=== PATIENT | female | born 1960 | race Caucasian/White ===

== ENCOUNTER 2019-10-13 20:06 | Inpatient (IN) | payer MEDICARE ==
[~2019-10-13] VITALS: Ht 162.6 cm; Wt 136.4 kg
[2019-10-13 20:25] LABS: BASOPHILS # (AUTO) 0.1 X10'3 (0-0.2); EOSINOPHILS % (AUTO) 0.7 % (0-6); HEMATOCRIT 37.7 % (35.0-45.0); HEMOGLOBIN 12.7 g/dl (12.0-16.0); LYMPHOCYTES # (AUTO) 1.9 X10'3 (1.1-4.8); LYMPHOCYTES % (AUTO) 27.5 % (21-51); MEAN CORPUSCULAR HEMOGLOBIN 28.2 PG (27.0-31.0); MEAN CORPUSCULAR HGB CONC 33.7 g/dL (33.0-36.5); MEAN CORPUSCULAR VOLUME 83.7 FL (78-98); MONOCYTES # (AUTO) 0.5 X10'3 (0-0.9); MONOCYTES % (AUTO) 7.4 % (2-12); NEUTROPHILS # (AUTO) 4.4 X10'3 (1.8-7.7); NEUTROPHILS % (AUTO) 63.4 % (42-75); PLATELET COUNT 214 X10'3 (140-440); RED CELL DISTRIBUTION WIDTH 14.5 % (11.5-14.5)
[2019-10-13 20:40] LABS: ALANINE AMINOTRANSFERASE 34 U/L (12-78); ALKALINE PHOSPHATASE 80 IU/L (46-116); ANION GAP 7 (8-16); ASPARTATE AMINO TRANSFERASE 29 U/L (10-37); BILIRUBIN,TOTAL 0.3 MG/DL (0.1-1.0); BLOOD UREA NITROGEN 10 MG/DL (7-18); BUN/CREATININE RATIO 9.5 (6.6-38.0); CALCIUM 9.1 MG/DL (8.5-10.1); CHLORIDE 97 MMOL/L (99-107); CREATININE 1.05 MG/DL (0.40-0.90); GLUCOSE 141 MG/DL (70-104); POTASSIUM 3.9 MMOL/L (3.5-5.1); SODIUM 134 MMOL/L (135-145); TOTAL CARBON DIOXIDE 30.2 MMOL/L (24-32); TOTAL PROTEIN 8.2 G/DL (6.4-8.2); eGFR 54 ML/MIN
[2019-10-13] MEDS ORDERED: methylPREDNISolone sod succ 125mg/2ml vial IV ONE (20:40)
[2019-10-13] MEDS ORDERED: LORazepam 2 mg/ml vial IV ONE (20:40)
[2019-10-13 21:06] LABS: MAGNESIUM 1.9 MG/DL (1.5-2.4)
[2019-10-13] MEDS ORDERED: ATOR40TA PO (21:10)
[2019-10-13] MEDS ORDERED: BUDE10.2 INH (21:10)
[2019-10-13] MEDS ORDERED: CARI-75 PO (21:10)
[2019-10-13] MEDS ORDERED: ALBU18HF2 INH (21:10)
[2019-10-13] MEDS ORDERED: OMEP40CA13 PO (21:10)
[2019-10-13] MEDS ORDERED: FLUO40CA10 PO (21:10)
[2019-10-13] MEDS ORDERED: FLUT1AER INH (21:10)
[2019-10-13] MEDS ORDERED: CLON-527 PO (21:10)
[2019-10-13] MEDS ORDERED: HYDR-4353 PO (21:10)
[2019-10-13] MEDS ORDERED: HYDROmorphone 2mg tablet PO PRN (21:55)
[2019-10-13 22:20] LABS: PARTIAL THROMBOPLASTIN TIME 25 SECONDS (22-32)
[2019-10-13] MEDS ORDERED: magnesium 4gm in 100ml NS 100 ML IV PRN (22:35)
[2019-10-13] MEDS ORDERED: magnesium Cl slow-release 64mg tablet PO PRN (22:35)
[2019-10-13] MEDS ORDERED: acetaminophen 325mg tablet PO PRN ×2 (22:35)
[2019-10-13] MEDS ORDERED: magnesium hydroxide 30ml (MOM) UD suspension PO PRN (22:35)
[2019-10-13] MEDS ORDERED: magnesium 2GM in 50ml NS 50 ML IV PRN (22:35)
[2019-10-13] MEDS ORDERED: morphine 2 MG/ML inj. syringe IV PRN ×2 (22:35)
[2019-10-13] MEDS ORDERED: ondansetron/PF 4mg/2ml inj IV PRN (22:35)
[2019-10-13] MEDS ORDERED: potassium Cl 20 mEq SR tablet PO PRN ×2 (22:35)
[2019-10-13] MEDS ORDERED: mag hydrox/Alum hydrox/simeth 30ml oral suspension PO PRN (22:35)
[2019-10-13] MEDS ORDERED: HYDROcodone/acetaminophen 5mg/325mg tablet PO PRN (22:35)
[2019-10-13] MEDS ORDERED: ipratropium/albuterol 3ml nebule NEB PRN (22:35)
[2019-10-13] MEDS ORDERED: potassium CL 10mEq/100ml bag 100 ML IV PRN ×2 (22:35)
--- NOTE | 2019-10-13 22:55 | NUR ---
PT VITALS UPDATED ,FAMILY AT BEDSIDE .
[2019-10-13] MEDS ORDERED: azithromycin 250mg tablet PO ONE (23:40)
[2019-10-13] MEDS ORDERED: clonazePAM 1mg tablet PO ONE (23:45)
--- NOTE | 2019-10-14 00:43 | NUR ---
Patient in room ED 13. I have received report from Adalgisa Mckeon Rn and had the opportunity to ask questions and will assume patient care upon arrival to the floor. Addendum: 10/14/19 at 0044 by Beverly Bolanos RN Amended: Links added.
[2019-10-14 00:50] VITALS: BP 131/91
--- NOTE | 2019-10-14 00:50 | NUR ---
received pt from the Er noted very anxious impulsive taking mask off at times and desating to the 80's and tachycardia. and daughter brought in after pt settled into the bed. pt with exertional expiratory wheezes but on auscultation noted increased aeration. several times approx every 5minutes needed to remind pt to put the o2 mask back on she would desat to 86-88 without it. [id number] done regarding the importance to pt and family.
[2019-10-14 01:22] LABS: ALBUMIN 3.8 G/DL (3.4-5.0); ANION GAP 7 (8-16); BLOOD UREA NITROGEN 10 MG/DL (7-18); CALCIUM 9.3 MG/DL (8.5-10.1); CHLORIDE 96 MMOL/L (99-107); GLUCOSE 207 MG/DL (70-104); MAGNESIUM 1.9 MG/DL (1.5-2.4); POTASSIUM 4.2 MMOL/L (3.5-5.1); SODIUM 131 MMOL/L (135-145); TOTAL CARBON DIOXIDE 28.4 MMOL/L (24-32); eGFR 57 ML/MIN
--- NOTE | 2019-10-14 02:00 | NUR ---
and daughter left and pt took po meds including po norco for pain. pt instructed not to get up to call Rn for assistance and we would attempt to slowly get her up o the bedside commode.
[2019-10-14] MEDS: HYDROcodone/acetaminophen 10/325mg tab PO PRN ×4 (02:14→22:54)
--- NOTE | 2019-10-14 03:10 | NUR ---
attempt x2 for troponin level draw. obtained scant amount of blood and vein would give out not enough to run a level.
--- NOTE | 2019-10-14 04:40 | NUR ---
pt resting eyes closed appears comfortable without s&s of distress at this time.
--- NOTE | 2019-10-14 05:44 | NUR ---
awoke up to bedside commode with assistance.
--- NOTE | 2019-10-14 05:57 | NUR ---
BACK TO BED MEDICATED WITH MORPHINE FOR PAIN AND TEACHING ON PURSED LIPPED BREATHING DONE DUE TO EXERTIONAL SOB. ALSO PT HAD TAKEN 02 OFF BRIEFLY AND DESATURATED AND TEACHING REGARDING THE IMPORTANCE UNTIL ANTIBIOTIC AND STEROID KICKS IN.
[2019-10-14 05:58] LABS: BASOPHILS % (AUTO) 0.2 % (0-1); EOSINOPHILS % (AUTO) 0 % (0-6); HEMOGLOBIN 11.5 g/dl (12.0-16.0); LYMPHOCYTES # (AUTO) 0.5 X10'3 (1.1-4.8); LYMPHOCYTES % (AUTO) 11.5 % (21-51); MEAN CORPUSCULAR HEMOGLOBIN 28.9 PG (27.0-31.0); MEAN CORPUSCULAR HGB CONC 33.8 g/dL (33.0-36.5); MEAN CORPUSCULAR VOLUME 85.4 FL (78-98); MEAN PLATELET VOLUME 8.3 FL (7.4-10.4); MONOCYTES # (AUTO) 0.1 X10'3 (0-0.9); MONOCYTES % (AUTO) 1.3 % (2-12); NEUTROPHILS # (AUTO) 4.1 X10'3 (1.8-7.7); PLATELET COUNT 179 X10'3 (140-440); RED BLOOD COUNT 3.98 X10'6 (4.20-5.60); RED CELL DISTRIBUTION WIDTH 14.5 % (11.5-14.5); WHITE BLOOD COUNT 4.7 X10'3 (4.5-11.0)
--- NOTE | 2019-10-14 06:14 | NUR ---
Problems reprioritized. Patient report given, questions answered & plan of care reviewed with ISSAC ARTHUR. Addendum: 10/14/19 at 0615 by Beverly Bolanos RN Amended: Links added.
--- NOTE | 2019-10-14 06:42 | NUR ---
Received report from Beverly ARTHUR
[2019-10-14 06:51] VITALS: BP 147/75
[2019-10-14] MEDS: FLUoxetine 20mg capsule PO SCH (07:56)
[2019-10-14] MEDS: predniSONE 20 mg tablet PO SCH (07:57)
[2019-10-14] MEDS: atorvastatin 20mg tablet PO SCH (07:57)
[2019-10-14] MEDS: clonazePAM 1mg tablet PO SCH ×3 (07:57→20:36)
[2019-10-14] MEDS: pantoprazole 40mg Tablet.DR PO SCH (07:57)
[2019-10-14] MEDS: azithromycin 250mg tablet PO SCH (07:57)
[2019-10-14] MEDS: enoxaparin 40mg/0.4ml syringe SQ SCH (08:00)
[2019-10-14] MEDS: K and/or MAG REPLACEMENT MC SCH ×2 (08:00→20:00)
[2019-10-14] MEDS: ipratropium/albuterol 3ml nebule NEB SCH ×4 (08:32→20:39)
[2019-10-14] MEDS: furosemide 20 MG/2 ML vial IV SCH ×2 (10:53→20:36)
[2019-10-14 18:00] VITALS: BP 145/79
[2019-10-14 22:00] VITALS: BP 146/88
[2019-10-15 06:00] VITALS: BP 133/64
[2019-10-15 06:37] LABS: BASOPHILS % (AUTO) 0.5 % (0-1); EOSINOPHILS % (AUTO) 0.2 % (0-6); HEMATOCRIT 32.1 % (35.0-45.0); HEMOGLOBIN 10.8 g/dl (12.0-16.0); LYMPHOCYTES # (AUTO) 1.2 X10'3 (1.1-4.8); LYMPHOCYTES % (AUTO) 19.6 % (21-51); MEAN CORPUSCULAR HEMOGLOBIN 28.9 PG (27.0-31.0); MEAN CORPUSCULAR HGB CONC 33.8 g/dL (33.0-36.5); MEAN CORPUSCULAR VOLUME 85.4 FL (78-98); MEAN PLATELET VOLUME 7.7 FL (7.4-10.4); MONOCYTES # (AUTO) 0.6 X10'3 (0-0.9); MONOCYTES % (AUTO) 10.5 % (2-12); NEUTROPHILS # (AUTO) 4.2 X10'3 (1.8-7.7); NEUTROPHILS % (AUTO) 69.2 % (42-75); PLATELET COUNT 181 X10'3 (140-440); RED BLOOD COUNT 3.76 X10'6 (4.20-5.60); RED CELL DISTRIBUTION WIDTH 14.8 % (11.5-14.5)
--- NOTE | 2019-10-15 06:42 | NUR ---
RECEIVED REPORT FROM PRINCE RN
[2019-10-15 06:52] LABS: ALBUMIN 3.6 G/DL (3.4-5.0); ANION GAP 4 (8-16); BLOOD UREA NITROGEN 15 MG/DL (7-18); BUN/CREATININE RATIO 14.4 (6.6-38.0); CALCIUM 8.8 MG/DL (8.5-10.1); CHLORIDE 98 MMOL/L (99-107); CREATININE 1.04 MG/DL (0.40-0.90); GLUCOSE 129 MG/DL (70-104); MAGNESIUM 2.6 MG/DL (1.5-2.4); POTASSIUM 4.1 MMOL/L (3.5-5.1); SODIUM 138 MMOL/L (135-145); TOTAL CARBON DIOXIDE 36.5 MMOL/L (24-32); eGFR 54 ML/MIN
[2019-10-15 07:00] LABS: D-DIMER 0.22 MG/L FEU (0-0.50)
[2019-10-15] MEDS: atorvastatin 20mg tablet PO SCH (07:59)
[2019-10-15] MEDS: clonazePAM 1mg tablet PO SCH ×3 (07:59→20:38)
[2019-10-15] MEDS: FLUoxetine 20mg capsule PO SCH (07:59)
[2019-10-15] MEDS: predniSONE 20 mg tablet PO SCH (07:59)
[2019-10-15] MEDS: enoxaparin 40mg/0.4ml syringe SQ SCH (08:00)
[2019-10-15] MEDS: pantoprazole 40mg Tablet.DR PO SCH (08:00)
[2019-10-15] MEDS: azithromycin 250mg tablet PO SCH (08:00)
[2019-10-15] MEDS: furosemide 20 MG/2 ML vial IV SCH ×2 (08:00→20:38)
[2019-10-15] MEDS: K and/or MAG REPLACEMENT MC SCH ×2 (08:00→20:00)
[2019-10-15] MEDS: HYDROcodone/acetaminophen 10/325mg tab PO PRN ×2 (08:04→21:07)
[2019-10-15] MEDS: ipratropium/albuterol 3ml nebule NEB SCH ×4 (08:17→20:13)
[2019-10-15] MEDS ORDERED: regadenoson 0.4mg/5ml syringe IV PRN (08:25)
[2019-10-15] MEDS ORDERED: nitroGLYCERIN 0.4mg SUBLingual tab SL PRN (08:25)
[2019-10-15] MEDS ORDERED: metoprolol tartrate 1mg/ml inj IV PRN (08:25)
[2019-10-15] MEDS ORDERED: aminophylline 250mg/10ml inj. IV PRN (08:25)
[2019-10-15 10:00] VITALS: BP 115/62
[2019-10-15] MEDS ORDERED: albuterol 2.5 MG/3 ML nebule ONE (13:18)
[2019-10-15] MEDS ORDERED: albuterol 2.5 MG/3 ML nebule NEB ONE (13:25)
[2019-10-15 18:00] VITALS: BP 138/89
[2019-10-15 22:00] VITALS: BP 136/82
[2019-10-16 06:00] VITALS: BP 114/65
[2019-10-16 06:36] LABS: BASOPHILS % (AUTO) 0.8 % (0-1); EOSINOPHILS % (AUTO) 0.4 % (0-6); HEMATOCRIT 30.3 % (35.0-45.0); HEMOGLOBIN 10.3 g/dl (12.0-16.0); LYMPHOCYTES # (AUTO) 1.5 X10'3 (1.1-4.8); LYMPHOCYTES % (AUTO) 30.2 % (21-51); MEAN CORPUSCULAR HEMOGLOBIN 28.8 PG (27.0-31.0); MEAN CORPUSCULAR HGB CONC 33.9 g/dL (33.0-36.5); MEAN CORPUSCULAR VOLUME 85.1 FL (78-98); MEAN PLATELET VOLUME 7.9 FL (7.4-10.4); MONOCYTES # (AUTO) 0.5 X10'3 (0-0.9); MONOCYTES % (AUTO) 10.5 % (2-12); NEUTROPHILS # (AUTO) 2.8 X10'3 (1.8-7.7); NEUTROPHILS % (AUTO) 58.1 % (42-75); PLATELET COUNT 169 X10'3 (140-440); RED BLOOD COUNT 3.56 X10'6 (4.20-5.60); RED CELL DISTRIBUTION WIDTH 14.9 % (11.5-14.5); WHITE BLOOD COUNT 4.8 X10'3 (4.5-11.0)
--- NOTE | 2019-10-16 06:37 | NUR ---
Patient in room ORTHO 4023. I have received report from Valencia RN and had the opportunity to ask questions and assume patient care.
[2019-10-16] MEDS: ipratropium/albuterol 3ml nebule NEB SCH ×5 (07:00→20:18)
[2019-10-16 07:01] LABS: ALBUMIN 3.3 G/DL (3.4-5.0); ANION GAP 6 (8-16); BLOOD UREA NITROGEN 15 MG/DL (7-18); BUN/CREATININE RATIO 16.7 (6.6-38.0); CALCIUM 8.7 MG/DL (8.5-10.1); CHLORIDE 97 MMOL/L (99-107); GLUCOSE 119 MG/DL (70-104); MAGNESIUM 2.6 MG/DL (1.5-2.4); POTASSIUM 3.7 MMOL/L (3.5-5.1); SODIUM 135 MMOL/L (135-145); TOTAL CARBON DIOXIDE 32.5 MMOL/L (24-32); eGFR 64 ML/MIN
[2019-10-16] MEDS: K and/or MAG REPLACEMENT MC SCH ×2 (07:34→19:50)
[2019-10-16] MEDS: pantoprazole 40mg Tablet.DR PO SCH (08:09)
[2019-10-16] MEDS: furosemide 20 MG/2 ML vial IV SCH ×2 (08:09→20:14)
[2019-10-16] MEDS: clonazePAM 1mg tablet PO SCH ×3 (08:09→20:14)
[2019-10-16] MEDS: atorvastatin 20mg tablet PO SCH (08:09)
[2019-10-16] MEDS: FLUoxetine 20mg capsule PO SCH (08:09)
[2019-10-16] MEDS: predniSONE 20 mg tablet PO SCH (08:09)
[2019-10-16] MEDS: azithromycin 250mg tablet PO SCH (08:10)
[2019-10-16] MEDS: enoxaparin 40mg/0.4ml syringe SQ SCH (08:10)
[2019-10-16] MEDS: methylPREDNISolone sod succ 125mg/2ml vial IV SCH ×2 (09:51→17:09)
--- NOTE | 2019-10-16 13:05 | NUR ---
PAGER ID: [phone] MESSAGE: Rm [id number], White. Pt would like to speak to you about being discharged. Pt is upset and has questions for her MD. Thank you Jacque [phone]
--- NOTE | 2019-10-16 14:27 | NUR ---
Paged case mangmt after speaking with family regarding the patient's PCP. Rm [id number], White. Pt's family is asking for case mangmt to help the pt establish a PCP that is closer to home. Please advise. Thank you.
[2019-10-16] MEDS: HYDROcodone/acetaminophen 10/325mg tab PO PRN ×2 (14:40→20:14)
--- NOTE | 2019-10-16 15:10 | NUR ---
Patient is anxious and tearful which seems to contribute to her SOB and wheezing. Patient c/o the room being dirty and asked for ice packs and pain medication. EVS was called and cleaned the room promptly, also pt was given medications per MD order to alleviate her pain along with ice pack and a cool wash cloth. The patient was agitated and yelling about not wanting to be here in the hospital, with son at bedside. MD was paged in regards to questions she is having about being discharge, awaiting response from MD. Case management is going to consult to see if they can assist in the patient's concerns regarding a PCP.
--- NOTE | 2019-10-16 16:15 | NUR ---
Patient is calm and seems to be less agitated at this time, will continue to monitor.
[2019-10-16 18:00] VITALS: BP 129/66
--- NOTE | 2019-10-16 18:15 | NUR ---
Received report from Jacque ARTHUR. Assumed care of patient.
[2019-10-16] MEDS: lactobacillus rhamnosus 10,000 MMU CELLS/CAPSULE PO SCH (20:14)
[2019-10-16 22:00] VITALS: BP 141/72
[2019-10-17] MEDS: methylPREDNISolone sod succ 125mg/2ml vial IV SCH ×2 (00:22→08:15)
[2019-10-17] MEDS: HYDROcodone/acetaminophen 10/325mg tab PO PRN ×3 (00:23→11:56)
[2019-10-17 06:00] VITALS: BP 109/60
[2019-10-17 06:08] LABS: BASOPHILS % (AUTO) 0.1 % (0-1); EOSINOPHILS % (AUTO) 0 % (0-6); HEMATOCRIT 31.3 % (35.0-45.0); HEMOGLOBIN 10.7 g/dl (12.0-16.0); LYMPHOCYTES # (AUTO) 0.5 X10'3 (1.1-4.8); LYMPHOCYTES % (AUTO) 11.9 % (21-51); MEAN CORPUSCULAR HEMOGLOBIN 28.9 PG (27.0-31.0); MEAN CORPUSCULAR HGB CONC 34.1 g/dL (33.0-36.5); MEAN CORPUSCULAR VOLUME 84.7 FL (78-98); MEAN PLATELET VOLUME 7.9 FL (7.4-10.4); MONOCYTES # (AUTO) 0.2 X10'3 (0-0.9); MONOCYTES % (AUTO) 4.5 % (2-12); NEUTROPHILS # (AUTO) 3.7 X10'3 (1.8-7.7); NEUTROPHILS % (AUTO) 83.5 % (42-75); PLATELET COUNT 175 X10'3 (140-440); RED BLOOD COUNT 3.69 X10'6 (4.20-5.60); RED CELL DISTRIBUTION WIDTH 14.5 % (11.5-14.5); WHITE BLOOD COUNT 4.4 X10'3 (4.5-11.0)
--- NOTE | 2019-10-17 06:13 | NUR ---
Report given to Lee ARTHUR.
[2019-10-17 06:22] LABS: ALBUMIN 3.5 G/DL (3.4-5.0); ANION GAP 6 (8-16); BLOOD UREA NITROGEN 16 MG/DL (7-18); BUN/CREATININE RATIO 16.3 (6.6-38.0); CALCIUM 8.8 MG/DL (8.5-10.1); CHLORIDE 97 MMOL/L (99-107); CREATININE 0.98 MG/DL (0.40-0.90); GLUCOSE 249 MG/DL (70-104); MAGNESIUM 2.6 MG/DL (1.5-2.4); POTASSIUM 4.3 MMOL/L (3.5-5.1); SODIUM 136 MMOL/L (135-145); TOTAL CARBON DIOXIDE 33.3 MMOL/L (24-32); eGFR 58 ML/MIN
--- NOTE | 2019-10-17 06:55 | NUR ---
Patient in room ORTHO 4023. I have received report from Mackenzie Bishop and had the opportunity to ask questions and assume patient care.
[2019-10-17] MEDS: K and/or MAG REPLACEMENT MC SCH (07:09)
[2019-10-17 08:00] VITALS: BP 128/78
[2019-10-17] MEDS: FLUoxetine 20mg capsule PO SCH (08:14)
[2019-10-17] MEDS: lactobacillus rhamnosus 10,000 MMU CELLS/CAPSULE PO SCH (08:14)
[2019-10-17] MEDS: atorvastatin 20mg tablet PO SCH (08:14)
[2019-10-17] MEDS: pantoprazole 40mg Tablet.DR PO SCH (08:14)
[2019-10-17] MEDS: clonazePAM 1mg tablet PO SCH ×2 (08:15→13:03)
[2019-10-17] MEDS: azithromycin 250mg tablet PO SCH (08:15)
[2019-10-17] MEDS: furosemide 20 MG/2 ML vial IV SCH (08:16)
[2019-10-17] MEDS: enoxaparin 40mg/0.4ml syringe SQ SCH (08:17)
[2019-10-17] MEDS: ipratropium/albuterol 3ml nebule NEB SCH ×2 (08:31→11:44)
[2019-10-17 10:00] VITALS: BP 132/64
--- NOTE | 2019-10-17 11:28 | NUR ---
[phone] patient is wanting to be discharged is that possible today?
--- NOTE | 2019-10-17 11:32 | NUR ---
Initial: Pt admit w/ SOB DX acute on chronic cor pulmonale w/ R sided heart failure EF 45-50% per MD note. PO 100% meals; did refuse dinner last night but overall meeting needs. Pt constipated prior to last night but reports BM last night per RN. Will continue to monitor. Rec: 1. continue heart healthy diet 2. monitor for additional protein needs IF PO declines 3. routine bowel care 4. wt per rx Addendum: 10/17/19 at [address] Amended: Links added.
[2019-10-17] MEDS ORDERED: FURO-150 PO (12:36)
[2019-10-17] MEDS ORDERED: PRED20TA PO (12:36)
[2019-10-17] MEDS ORDERED: BUPR150T8 PO (13:02)
--- NOTE | 2019-10-17 14:30 | NUR ---
Patient discharged to home with all belongings sent with patient, patient stable upon discharge. Patient and spouse educated on discharge information and follow up with primary care , new rx called into preferred pharmacy.
== END 2019-10-17 14:26 | disposition home or self-care (01) | DRG 190 ==
LOC: ER 20:07 → ED HOLD 22:37 → ORTHO 4S 10-14 00:45
PROVIDERS: ADMIT Hospitalist; ATTEND Family Medicine
PROC: 4A02XM4 Measurement of Cardiac Total Activity, External Approach (ICD-10-PCS; principal; 2019-10-15)
PROC: 3E033HZ Introduction of Radioactive Substance into Peripheral Vein, Percutaneous Approach (ICD-10-PCS; 2019-10-15)
DX: J44.1 Chronic obstructive pulmonary disease with (acute) exacerbation (principal); I50.33 Acute on chronic diastolic (congestive) heart failure; E87.1 Hypo-osmolality and hyponatremia; N17.9 Acute kidney failure, unspecified; Z68.43 Body mass index [BMI] 50.0-59.9, adult; E66.01 Morbid (severe) obesity due to excess calories; E83.42 Hypomagnesemia; M19.90 Unspecified osteoarthritis, unspecified site; M54.9 Dorsalgia, unspecified; F41.0 Panic disorder [episodic paroxysmal anxiety]; F17.200 Nicotine dependence, unspecified, uncomplicated; E78.5 Hyperlipidemia, unspecified; F32.9 Major depressive disorder, single episode, unspecified; J40 Bronchitis, not specified as acute or chronic; G89.4 Chronic pain syndrome; I20.9 Angina pectoris, unspecified; N18.9 Chronic kidney disease, unspecified; R09.02 Hypoxemia; Z85.43 Personal history of malignant neoplasm of ovary; Z90.710 Acquired absence of both cervix and uterus; Z79.899 Other long term (current) drug therapy
CPT/HCPCS: 36415; 71045; 78451; 80048; 80053; 83735; 83880; 84484; 85025; 85379; 85610; 85730; 87081; 93005; 93308; 94640; 94760; 96374; 96375; 99285; A9500; G0378; J0280; J1650; J1940; J2060; J2270; J2785; J2930; J7512

== ENCOUNTER 2025-03-03 13:38 | Emergency (ER) | payer MEDICARE, SELFPAY ==
[~2025-03-03] VITALS: Ht 162.6 cm; Wt 98.3 kg
[~2025-03-03 13:38] MED LIST: ALBU18HF2 INH; ATOR40TA PO; CARI-75 PO; CLON-527 PO; ERGO500056 PO; FLUO40CA10 PO; FLUT1AER INH; HYDR-4353 PO; ONDA-243 PO; PANT-47 PO; SUCR1TAB34 PO; [UNRECOGNIZED DRUG - CODE] CONITINF
--- NOTE | 2025-03-03 14:01 | ELECTROCARDIOGRAPH REPORT ---
[facility] Test Date: 2025-03-03 Test Time: 13:57:24 Pat Name: DAWNA DENSON Department: [facility] Patient ID: [facility]-[id number] Room: Gender: F Hide Splitter: : 1960 Requested By: RUY STYLES Order Number: [id number] Reading MD: Dr. William Sanz Measurements Intervals Percival Rate: 105 P: 42 UT: 170 QRS: 0 QRSD: 94 T: 55 QT: 366 QTc: 484 Interpretive Statements Sinus tachycardia Consider left ventricular hypertrophy Borderline prolonged QT interval Baseline wander in lead(s) II,III,aVL,aVF,V2,V3,V4,V5,V6 Electronically Signed On 03-03-2025 18:29:[address] William Sanz Please click the below link to view image of tracing.
--- NOTE | 2025-03-03 14:16 | RADIOLOGY REPORT ---
CHEST RADIOGRAPH Indication: CP Technique: Single frontal view of the chest was obtained Comparison: CHEST,SINGLE VIEW on DOS: 10/13/19 FINDINGS: Lines and Tubes: None Lungs: No focal consolidation. Pleura: No effusion. No pneumothorax. Cardiomediastinal contours: Unremarkable Bones: No acute osseous abnormality. IMPRESSION: No acute cardiopulmonary disease.
[2025-03-03 14:32] LABS: BASOPHILS % (AUTO) 0.6 % (0-1); EOSINOPHILS % (AUTO) 0.7 % (0-6); HEMATOCRIT 41.2 % (35.0-45.0); HEMOGLOBIN 13.7 g/dl (12.0-16.0); LYMPHOCYTES # (AUTO) 0.9 X10'3 (1.1-4.8); LYMPHOCYTES % (AUTO) 30.1 % (21-51); MEAN CORPUSCULAR HEMOGLOBIN 28.4 PG (27.0-31.0); MEAN CORPUSCULAR HGB CONC 33.3 g/dL (33.0-36.5); MEAN CORPUSCULAR VOLUME 85.3 FL (78-98); MEAN PLATELET VOLUME 8.2 FL (7.4-10.4); MONOCYTES # (AUTO) 0.3 X10'3 (0-0.9); MONOCYTES % (AUTO) 8.9 % (2-12); NEUTROPHILS # (AUTO) 1.8 X10'3 (1.8-7.7); NEUTROPHILS % (AUTO) 59.7 % (42-75); PLATELET COUNT 212 X10'3 (140-440); RED BLOOD COUNT 4.83 X10'6 (4.20-5.60); RED CELL DISTRIBUTION WIDTH 14.8 % (11.5-14.5); WHITE BLOOD COUNT 3.1 X10'3 (4.5-11.0)
[2025-03-03 14:44] LABS: ALANINE AMINOTRANSFERASE 15 U/L (12-78); ALBUMIN 4.4 G/DL (3.4-5.0); ALBUMIN/GLOBULIN RATIO 1.4 (1.1-1.5); ALKALINE PHOSPHATASE 59 IU/L (46-116); ANION GAP 11 (8-16); ASPARTATE AMINO TRANSFERASE 19 U/L (10-37); BILIRUBIN,TOTAL 0.2 MG/DL (0.1-1.0); BLOOD UREA NITROGEN 8 MG/DL (7-18); BUN/CREATININE RATIO 9.2 (10.0-20.0); CALCIUM 9.3 MG/DL (8.5-10.1); CHLORIDE 103 MMOL/L (99-107); CREATININE 0.87 MG/DL (0.40-0.90); GLUCOSE 141 MG/DL (70-104); POTASSIUM 3.7 MMOL/L (3.5-5.1); SODIUM 140 MMOL/L (135-145); TOTAL CARBON DIOXIDE 25.6 MMOL/L (24-32); TOTAL PROTEIN 7.5 G/DL (6.4-8.2); eCRCL 57 ML/MIN; eGFR 66 ML/MIN
[2025-03-03 14:53] LABS: LIPASE 18 U/L (16-77); PRO BRAIN NATRIURETIC PEPTIDE 38 PG/ML (0-125)
--- NOTE | 2025-03-03 14:57 | Physician Documentation ---
History of Present Illness ~ General Chief Complaint: Multiple Medical Complaints Stated Complaint: STOMACH PAIN Time Seen by MD: 14:02 OK to notify your PCP?: Yes Mode of Arrival: POV Medication Reconciliation Allergies: Coded Allergies: prochlorperazine (Verified Allergy, Severe, LOCKJAW/SOB, 08/28/23) Scheduled Albuterol Sulfate (Ventolin Hfa), 2 PUFFS INH Q4HPRN, (Reported) Atorvastatin Calcium* (Lipitor*), 1 TAB PO DAILY, (Reported) Carisoprodol (Soma), 1 TAB PO QID, (Reported) Clonazepam* (Klonopin*), 1 MG PO TID, (Reported) Ergocalciferol (Vitamin D2) (Vitamin D2), 1 CAP PO Q7D, (Reported) Fluoxetine HCl (Prozac), 1 CAP PO DAILY, (Reported) Fluticasone/Vilanterol (Breo Ellipta 100-25 Mcg INH), 1 PUFF INH DAILY, (R eported) Hydrocodone Bit/Acetaminophen ([place] 10-325 Tablet), 1 TAB PO QID PRN, (Reported) Pantoprazole Sodium (PROTONIX tablet), 40 MG PO BID Sucralfate (Carafate), 1 GM PO ACHS Sufentanil Citrate (Sufentanil Citrate), 278.74 MCG CONITINF DAILY, (Reported) Scheduled PRN ONDANSETRON ODT 4mg tablet (Ondansetron Odt), 1 TABLET PO Q6H PRN for nausea/vomiting Past Medical History Past Medical History: Bronchitis, COPD, Chronic Pain, Chronic Back Pain, Ovarian Cancer Past Surgical History: noncontributory, , hysterectomy Other Past Surgical History: Breast reduction, Pain pump Patient History: FH: leukemia MOTHER, Name: mom (all women moms side by age 55 of leukemia and or ovarian ca), , Age: 55, Cause: Mom leukemia, ovarian cancer FH: ovarian cancer MOTHER, Name: mom (all women moms side by age 55 of leukemia and or ovarian ca), , Age: 55, Cause: Mom leukemia, ovarian cancer Maternal grandmother Lives with: Family Lives In: Home Physical Exam Physical Exam Vital Signs: Temperature: 98.8, Source: Oral, Heart Rate: 95, Respiratory Rate: 12, BP: 160/95, Pulse Oximetry: 96, Weight: 98.300 Oxygen Flow Rate: 0 Progress Results/Orders Results/Orders Orders - RUY STYLES MD Urinalysis, Cult If Indicated (03/03/25 13:46) Hcg, Ur Ql (03/03/25 13:46) Straight Cath For Urine Sample (03/03/25 13:46) Chest,Single View (03/03/25 13:56) Morphine 4mg/Ml Inj. (Morphine Inj.) (03/03/25 14:55) Metoclopramide Inj (Reglan Inj) (03/03/25 14:55) Diphenhydramine Inj (Benadryl Inj.) (03/03/25 14:55) Ct Abdomen Pelvis (03/03/25 14:54) Completed Orders - RUY STYLES MD Cbc/Diff (03/03/25 13:46) BMP (03/03/25 13:46) Lipase (03/03/25 13:46) CMP (03/03/25 13:46) Chest,Single View (03/03/25 13:56) PBNP (03/03/25 13:46) Electrocardiogram (03/03/25 13:46) Hs Troponin I W Calculations (03/03/25 13:46) Vital Signs 03/03/25 03/03/25 13:39 14:47 Temp 98.8 98.8 Pulse 102 95 Resp 16 12 B/P (MAP) 185/114 160/95 (116) Pulse Ox 97 96 O2 Flow Rate 0 0 Laboratory Tests Test 03/03/25 14:15 White Blood Count 3.1 L Red Blood Count 4.83 Hemoglobin 13.7 Hematocrit 41.2 Mean Corpuscular Volume 85.3 Mean Corpuscular Hemoglobin 28.4 Mean Corpuscular Hemoglobin Concent 33.3 Red Cell Distribution Width 14.8 H Platelet Count 212 Mean Platelet Volume 8.2 Neutrophils (%) (Auto) 59.7 Lymphocytes (%) (Auto) 30.1 Monocytes (%) (Auto) 8.9 Eosinophils (%) (Auto) 0.7 Basophils (%) (Auto) 0.6 Neutrophils # (Auto) 1.8 Lymphocytes # (Auto) 0.9 L Monocytes # (Auto) 0.3 Eosinophils # (Auto) 0.0 Basophils # (Auto) 0.0 CBC Comment Sodium Level 140 Potassium Level 3.7 Chloride Level 103 Carbon Dioxide Level 25.6 Anion Gap 11 Blood Urea Nitrogen 8 Creatinine 0.87 Estimated GFR/1.73 m2 66 BUN/Creatinine Ratio 9.2 L Glucose Level 141 H Calcium Level 9.3 Total Bilirubin 0.2 Aspartate Amino Transf (AST/SGOT) 19 Alanine Aminotransferase (ALT/SGPT) 15 Alkaline Phosphatase 59 Troponin I High Sensitivity 12 Pro-B-Type Natriuretic Peptide 38 Total Protein 7.5 Albumin 4.4 Globulin 3.1 Albumin/Globulin Ratio 1.4 Lipase 18 Chemistry Comments Departure Referrals: NO PRIMARY CARE PROVIDER (PCP) RUY STYLES MD March 03, 2025 14:57
[2025-03-03] MEDS ORDERED: iohexol 300mg/ml 100ml inj. ONE (15:12)
[2025-03-03] MEDS: morphine 4 MG/ML inj SYRINge IV ONE (15:15)
[2025-03-03] MEDS: diphenhydrAMINE 50 mg/ml inj IV ONE (15:15)
[2025-03-03] MEDS: metoclopramide 5 mg/ml inj IV ONE (15:15)
[2025-03-03] MEDS: normal saline 1000ml 1,000 ML IV SCH (15:16)
[2025-03-03 16:13] LABS: URINE HCG NEGATIVE (NEG)
--- NOTE | 2025-03-03 16:20 | RADIOLOGY REPORT ---
Exam: CT CT ABDOMEN PELVIS W/ IV CONTRAST History: pain llq COMPARISON: CT CT ABDOMEN PELVIS on DOS: 08/29/23, Technique: Multidetector spiral CT of the abdomen and pelvis was performed from lung bases to pubic s ymphysis. Intravenous contrast was administered during this examination. Portal venous imaging was o btained. Axial, coronal and sagittal multiplanar reformats were performed by the technologist on a [employer] workstation. Radiation Dose : 1. Abdomen/Pelvis: CTDIvol 34 mGy, DLP 1664 mGy*cm. CONTRAST: Type of contrast: Omnipaque 300 Contrast injected: 100 ml Contrast ingested: 0 ml Findings: Lung Bases: Unremarkable Liver: Hepatic cysts. Gallbladder and Biliary Tree: Unremarkable Spleen: Unremarkable Pancreas: Unremarkable Adrenal Glands: Unremarkable Kidneys: Left renal cysts. No nephrolithiasis or hydronephrosis. Bladder: Unremarkable Bowel: Unremarkable. Normal appendix is visualized in the right lower quadrant without findings of a ppendicitis. Peritoneum and Retroperitoneum: No ascites, free air or focal fluid collection. Lymphadenopathy: No lymphadenopathy. Abdominal Wall: Left anterior abdominal wall spinal stimulator noted. Vasculature: The visualized abdominal aorta is normal in size and caliber. Abdominal and pelvic vess els demonstrate normal enhancement. Pelvic Organs: Unremarkable Musculoskeletal: No acute osseous abnormality. Scattered degenerative changes. IMPRESSION: 1. No acute abdominal or pelvic finding. Radiation optimization: All CT scans at this facility use at least one of these dose optimization milan hniques: automated exposure control mA and/or kV adjustment per patient size (includes targeted exam s where dose is matched to clinical indication) or iterative reconstruction.
[2025-03-03 16:25] LABS: BILIRUBIN,URINE NEGATIVE (Neg); CLARITY,URINE CLEAR (Clear); COLOR,URINE YELLOW (Yellow); GLUCOSE, URINE NEGATIVE (Neg); KETONES,URINE NEGATIVE (Neg); LEUKOCYTE ESTERASE ,URINE NEGATIVE (Neg); NITRITES, URINE POSITIVE (Neg); OCCULT BLOOD,URINE NEGATIVE (Neg); PH,URINE 5.5 (4.8-8.0); PROTEIN,URINE NEGATIVE (Neg); UROBILINOGEN,URINE 0.2 E.U/dL (0.2-1.0)
[2025-03-03 16:29] LABS: UA COLLECTION TYPE CLN CATCH MIDSTREAM
[2025-03-03 16:31] LABS: BACTERIA,URINE 2+ /HPF (Neg); MUCUS STRANDS NONE SEEN /LPF (Neg); RBC,URINE NONE SEEN /HPF (0-2); SQUAMOUS EPITHELIAL CELL,UR FEW /LPF (FEW); WBC,URINE 0-4 /HPF (0-4)
[2025-03-03 16:32] VITALS: TEMP 98.8
[2025-03-03 18:13] VITALS: BP 160/90; PULSE 88; RESP 13; O2SAT 98
== END 2025-03-03 17:55 | disposition home or self-care (01) ==
LOC: ER 13:38
DX: G89.29 Other chronic pain (principal); R10.9 Unspecified abdominal pain; R07.89 Other chest pain; J44.9 Chronic obstructive pulmonary disease, unspecified; Z85.43 Personal history of malignant neoplasm of ovary; Z90.710 Acquired absence of both cervix and uterus
CPT/HCPCS: 36415; 71045; 74177; 80053; 81001; 81025; 83690; 83880; 84484; 85025; 87088; 87186; 93005; 96361; 96374; 96375; 99285; J1200; J2270; J2765; J7030; Q9967; 87077